=== PATIENT | male | born 1975 | race Caucasian/White ===

== ENCOUNTER 2023-09-12 12:34 | Emergency (ER) | payer OTHER ==
[2023-09-12 12:46] VITALS: TEMP 97.6; BMI 18.2
[2023-09-12] MEDS ORDERED: LACTATED RINGERS SOLUTION 1000 ML INFUS.BAG IV ONE (13:24)
[2023-09-12] MEDS ORDERED: BENZOIN/ALOE VERA/STORAX/TOLU 58 ML BOTTLE ONE (13:42)
[2023-09-12 14:04] LABS: HEMATOCRIT 41.6 % (35.4-49); HEMOGLOBIN 13.1 GM/dL (11.7-16.9); MCH 29.6 pg (25.7-33.7); MCHC 31.6 g/dl (32.0-35.9); MEAN CELL VOLUME 93.8 fl (80-96); MEAN PLT VOLUME 9.7 fl (7.5-11.1); PLATELET COUNT 241 10^3/uL (134-434); RBC 4.44 M/mm3 (4.00-5.60); RDW 15.6 % (11.9-15.9); VENOUS BASE EXCESS -6.3 mmol/L (-2-2); VENOUS O2 SATURATION 61.1 % (70-80); VENOUS PH 7.367 (7.310-7.410); WHITE BLOOD COUNT 5.9 K/mm3 (4.0-10.0)
[2023-09-12] MEDS ORDERED: VANCOMYCIN 1,000 MG in DEXTROSE 5%-WATER - 250 ML IVPB ONE (14:08)
[2023-09-12 14:11] LABS: INR 1.29 (0.83-1.09); PROTHROMBIN TIME (PATIENT) 14.9 SEC (9.7-13.0)
[2023-09-12 14:13] LABS: ACTIVATED PTT 38.9 SECONDS (25.2-36.5)
[2023-09-12 14:29] LABS: LACTIC ACID 8.8 mmol/L (0.4-2.0)
[2023-09-12 14:31] LABS: CHLORIDE 105 mmol/L (98-107); POTASSIUM 4.9 mmol/L (3.5-5.1); SODIUM 137 mmol/L (136-145)
[2023-09-12 14:33] LABS: CALCIUM 7.7 mg/dL (8.5-10.1)
[2023-09-12 14:34] LABS: ALBUMIN 0.9 g/dl (3.4-5.0); ANION GAP 13 mmol/L (4-13); BLOOD UREA NITROGEN 20.3 mg/dL (7-18); CO2 18 mmol/L (21-32)
[2023-09-12] MEDS ORDERED: SODIUM CHLORIDE 1,633 ML IV ONE (14:34)
[2023-09-12] MEDS ORDERED: AZTREONAM 2 GM VIAL (RESTRICTED TO ID) ONE (14:34)
[2023-09-12] MEDS ORDERED: VANCOMYCIN 1 GRAM (PRE-DOCKED) 1,000 MG/250 ML BAG IVPB ONE (14:35)
[2023-09-12 14:37] LABS: CREATININE 1.8 mg/dL (0.55-1.3); SGOT/AST 29 U/L (15-37); SGPT/ALT 24 U/L (13-61)
[2023-09-12 14:38] LABS: BILIRUBIN,TOTAL 0.4 mg/dL (0.2-1)
[2023-09-12 14:39] LABS: TOT PROT 3.9 g/dl (6.4-8.2)
[2023-09-12 14:40] LABS: ALK PHOS 103 U/L (45-117)
[2023-09-12 14:47] LABS: GLUCOSE,RANDOM 29 mg/dL (74-106)
[2023-09-12] MEDS ORDERED: DEXTROSE 50%-WATER 25 GM/50 ML DISP.SYRIN ONE (14:53)
[2023-09-12] MEDS: DEXTROSE 50%-WATER - 25 GM/50 ML VIAL IVPUSH ONE (14:53)
[2023-09-12 15:07] LABS: ANISOCYTOSIS 0; MACROCYTOSIS 0
[2023-09-12] MEDS ORDERED: HEPARIN INFUSION - 25,000 UNITS/500 ML INFUS.BAG IVPB ONE (15:12)
[2023-09-12] MEDS: AZTREONAM 2 GM in DEXTROSE 5%-WATER 100 ML IVPB ONE (15:26)
[2023-09-12 15:27] VITALS: BP 90/55; PULSE 110; RESP 27
[2023-09-12] MEDS: HEPARIN INFUSION - 25,000 UNITS/500 ML INFUS.BAG IVPB SCH (15:27)
[2023-09-12] MEDS: LACTATED RINGERS SOLUTION 1000 ML INFUS.BAG IV ONE (15:31)
== END 2023-09-12 16:00 | disposition short-term general hospital (02) ==
LOC: JER 12:34
PROC: 3E033GC Introduction of Other Therapeutic Substance into Peripheral Vein, Percutaneous Approach (ICD-10-PCS; principal; 2023-09-12)
PROC: 3E033GC Introduction of Other Therapeutic Substance into Peripheral Vein, Percutaneous Approach (ICD-10-PCS; 2023-09-12)
DX: A41.9 Sepsis, unspecified organism (principal); R65.21 Severe sepsis with septic shock; N17.9 Acute kidney failure, unspecified; I21.3 ST elevation (STEMI) myocardial infarction of unspecified site; M62.262 Nontraumatic ischemic infarction of muscle, left lower leg
CPT/HCPCS: 36415; 71045-TC-FY; 80053; 82803; 82962; 83605; 83690; 83735; 84484; 85025; 85610; 85730; 86850; 86900; 86901; 87040; 87186; 93005; 93010; 93971-LT; 99285-25; J1644